=== PATIENT | male | born 1985 | race African-American/Black ===

== ENCOUNTER 2020-03-14 15:42 | Emergency (ER) | payer MEDICAID ==
[~2020-03-14] VITALS: Ht 175.3 cm; Wt 70.3 kg
[2020-03-14] MEDS: IV NORMAL SALINE 1000 ML BAG IV ONE (16:20)
[2020-03-14] MEDS ORDERED: ONDANSETRON 4 MG/2 ML VIAL ONE (16:25)
[2020-03-14] MEDS ORDERED: PIPERACILLIN/TAZOBACTAM/D5W 50 ML IV ONE (16:25)
[2020-03-14 16:26] LABS: BASOPHILS % (AUTO) 0.7 % (0.0-2.0); EOSINOPHILS % (AUTO) 0.6 % (0.0-7.0); HEMATOCRIT 47.3 % (36.7-47.1); HEMOGLOBIN 16.1 g/dL (12.5-16.3); MEAN CORPUSCULAR HEMOGLOBIN 30.4 uug (23.8-33.4); MEAN CORPUSCULAR HGB CONC 34 g/dL (32.5-36.3); MEAN CORPUSCULAR VOLUME 89.2 fL (73.0-96.2); MONOCYTES # (AUTO) 0.7 K/uL (2.0-10.0); MONOCYTES % (AUTO) 11.6 % (0.0-11.0); NEUTROPHILS # (AUTO) 3.5 K/uL (1.8-8.9); NEUTROPHILS % (AUTO) 55.1 % (38.5-71.5); PLATELET COUNT (AUTO) 305 K/uL (152-348); WHITE BLOOD COUNT (AUTO) 6.4 K/uL (3.6-10.2)
[2020-03-14] MEDS: ONDANSETRON 4 MG/2 ML VIAL IV ONE (16:34)
[2020-03-14] MEDS: PIPERACILLIN SODIUM/TAZOBACTAM 3.375 G in IV DEXTROSE 5% 50 ML IV ONE (16:34)
[2020-03-14 16:38] LABS: ETHANOL 150 MG/DL (0-0)
[2020-03-14 16:41] LABS: POTASSIUM 3.1 mmol/L (3.5-5.1)
[2020-03-14 16:47] LABS: BILIRUBIN,DIRECT 0.2 mg/dL (0.0-0.2); BILIRUBIN,TOTAL 0.7 mg/dL (0.2-1.0); TOTAL PROTEIN, SERUM 8.7 g/dL (6.4-8.2)
[2020-03-14 16:57] LABS: *BILIRUBIN,URIN NEGATIVE (NEGATIVE); *BLOOD, URINE 1+ (NEGATIVE); *CLARITY,URINE CLEAR (CLEAR); *COLOR,URINE YELLOW (YELLOW); *KETONES,URINE TRACE (NEGATIVE); *UROBILINOGEN,URINE 0.2 E.U./dl (NORMAL); LEUKOCYTE ESTERASE ,URINE NEGATIVE (NEGATIVE); NITRITE, URINE NEGATIVE (NEGATIVE); PH,URINE 5.5 (5.0-8.0); UGLUCOSE NEGATIVE (NEGATIVE)
[2020-03-14 17:00] LABS: ACETAMINOPHEN < 2.0 ug/mL (10-30); CREATINE KINASE, TOTAL 884 U/L (39-308); MAGNESIUM 2.2 mg/dL (1.8-2.4); PHOSPHOROUS 4.1 mg/dL (2.5-4.9)
[2020-03-14 17:04] LABS: *AMPHETAMINE, URINE NEGATIVE (NEGATIVE); *BARBITURATE, URINE NEGATIVE (NEGATIVE); *CANNABINOID, URINE POSITIVE (NEGATIVE); *COCCAINE, URINE NEGATIVE (NEGATIVE); *OPIATE, URINE NEGATIVE (NEGATIVE); *PHENCYCLIDINE SCREEN,URINE NEGATIVE (NEGATIVE)
[2020-03-14] MEDS ORDERED: POTASSIUM CHLORIDE 20 MEQ TAB.PRT.SR ONE (17:08)
[2020-03-14] MEDS: POTASSIUM CHLORIDE 20 MEQ TAB.PRT.SR PO ONE (17:11)
[2020-03-14] MEDS: LORAZEPAM 2 MG/1 ML VIAL IV ONE (17:20)
[2020-03-14] MEDS ORDERED: LORAZEPAM 2 MG/1 ML VIAL ONE (17:21)
--- NOTE | 2020-03-14 19:25 | NUR ---
PATIENT ASLEEP, RESPIRATIONS EVEN AND UNLBAORED, NO ACUTE DISTRESS NOTES. WILL MONITOR.
--- NOTE | 2020-03-14 21:28 | NUR ---
Patient discharged to home in stable condition. Written and verbal after care instructions given. Patient verbalizes understanding of instructions. Stressed follow up or return to ER for worsening s/s.
[2020-03-14 21:33] VITALS: BP 147/82
[2020-03-14 22:39] LABS: BACTERIA,URINE NONE SEEN /HPF (NONE SEEN); MUCUS,URINE FEW /LPF (0-FEW); RBC,URINE 0-3 /HPF (0-3); SQUAMOUS EPITHELIAL CELL,UR FEW /HPF (NONE SEEN); WBC,URINE 0-3 /HPF (0-3)
--- NOTE | 2020-03-15 11:59 | NUR ---
8:55am: SW met with patient after being informed by ED RN Flavio that patient was waiting in the ED waiting room to speak with this SW. Patient was seen and medically cleared in the ED last night. SW met with patient, who was in the ED waiting room. Patient is alert, oriented x 4, and was receptive to speaking with this SW. Patient is a 34 year old male. Patient stated that he has been homeless for the past 2 weeks. Patient stated that prior to that, he was living in a motel. Patient stated that he wanted homeless resources. SW provided patient with the following resources: a list of year round shelters [facility] [address], ; [facility] [address] [facility], ; and [facility] [address] [facility], [phone], along with resources for places to go for food, showers, substance abuse treatment, mental health services, community medical clinics, and pharmacies. These include the following: the [facility] homeless directory which provides a list of places that individuals can go to throughout the week for hot meals, sack lunches, food pantries, and showers; a list of mental health clinics: [facility] [address] [place] [address], ; [facility] [address] [place] [address], ; [facility] [address] [place] [address], ; a list of medical clinics: [facility] [address] [facility] [address], [place]. [place], ; [facility] [address] [facility], [address] [place] [address]; [facility] [address] [facility] [place] [address], ; and a list of substance abuse programs: [facility] Substance Abuse Self-helpline ; [facility] ; [facility] ; [facility] ; [facility] ; [facility] [phone]; [facility] [phone]; locations of pharmacies. DAPHNE also provided patient with information on [facility] in [place] [phone], and the [facility], located at [address] [place] [address], . DAPHNE spoke with Carla at [facility], who stated that they accept walk-ins Thursday through Thursday from 8am-3:30pm, and can assist patient with community linkage. SW relayed this information to the patient, and patient stated that he would go there now. SW assessed patient's needs for transportation, and patient stated that he uses the bus and does not need any other assistance with transportation. Patient's clothing was clean and weather appropriate. Patient was having a meal provided by this [facility]. Patient received all resources provided and signed the Homeless Patient Waiver Form, which DAPHNE filed in patient's ED chart. Patient thanked DAPHNE for her time and information provided. No further SS interventions needed at this time.
== END 2020-03-14 21:35 | disposition home or self-care (01) ==
LOC: ER 15:43
DX: F10.239 Alcohol dependence with withdrawal, unspecified (principal); Y90.6 Blood alcohol level of 120-199 mg/100 ml; E86.0 Dehydration; E87.2 Acidosis; Z59.0 Homelessness; E87.6 Hypokalemia; R11.2 Nausea with vomiting, unspecified; R19.7 Diarrhea, unspecified; R00.0 Tachycardia, unspecified; F12.20 Cannabis dependence, uncomplicated; I44.5 Left posterior fascicular block; Z20.828 Contact with and (suspected) exposure to other viral communicable diseases
CPT/HCPCS: 36415; 71045; 80048; 80076; 80307 ×2; 81001; 82009; 82550; 83605 ×2; 83735; 83880; 83930; 84100; 84443; 84484; 85025; 85730; 87040 ×2; 87086; 87426; 93005; 96365; 96375; 99285; G0480 ×2; J2060; J2405; J2543; 70030-TC; A4663; J7030